=== PATIENT | female | born 1945 | race Caucasian/White ===

== ENCOUNTER 2021-05-17 18:05 | Observation (INO) | payer MEDICARE, SELFPAY ==
[2021-05-17] VITALS (11 sets, daily range): BP systolic 142–168; BP diastolic 67–81; PULSE 54–78; RESP 13–24; TEMP 36.4–36.8; O2SAT 97–100; BMI 27.3
--- NOTE | 2021-05-17 18:12 | DI.RAD.S_ITS ---
PROCEDURE: XR CHEST 1V INDICATIONS: chest pain TECHNIQUE: One view of the chest was acquired. COMPARISON: None. FINDINGS: Surgical changes and devices: None. Lungs and pleura: Lungs are clear. No pleural effusions or pneumothorax. Mediastinum: Mediastinal contours appear normal. Heart size is normal. Bones and chest wall: No suspicious bony lesions. Overlying soft tissues appear unremarkable. IMPRESSION: No acute cardiopulmonary disease. Dictated by: Jose Subramanian M.D. on 05/17/2021 at 18:34 Approved by: Jose Subramanian M.D. on 05/17/2021 at 18:35
--- NOTE | 2021-05-17 18:21 | PC.NURSE ---
First episode of chest pain, nausea/diaphoresis at 1330 while walking. Pt rested and pain went away. Second episode 1730, chest pain (not as intense as first episode), nausea/diaphoresis. Pt called EMS, given 324mg aspirin. Pain has since resolved. Pt reports history of similar episode years ago while hiking. Was told she needed a stent and she declined a stent at that time. Informed pt to use call light to notify staff if pain/sypmtoms return.
[2021-05-17 18:29] LABS: Add Manual Diff / Slide Review NO; Basophils Absolute Auto 100 /uL (0-100); Basophils Percent Auto 0.8 % (0-2); Eosinophils Absolute Auto 0 /uL (0-450); Eosinophils Percent Auto 0.5 % (2-4); Hematocrit 42.2 % (36-46); Hemoglobin 14.1 g/dL (12.0-16.0); Lymphocytes Absolute Auto 2200 /uL (1100-4500); Lymphocytes Percent Auto 24.4 % (25-40); Mean Corpuscular HGB Conc 33.5 % (30-36); Mean Corpuscular Hemoglobin 31.3 PG (26-34); Mean Corpuscular Volume 93.4 fL (80-100); Monocytes Absolute Auto 700 /uL (0-900); Monocytes Percent Auto 7.8 % (3-14); Neutrophils Absolute Auto 6000 /uL (1500-7000); Neutrophils Percent Auto 66.5 % (50-75); Platelet Count 207 X10^3/uL (150-400); Red Blood Cell Count 4.52 X10^6/uL (4.0-5.2); Red Cell Distribution Width 13.5 % (11.6-14.8); White Blood Cell Count 9.1 X10^3/uL (4.5-11.0)
--- NOTE | 2021-05-17 18:29 | ED_ITS ---
HPI - Chest Pain General Chief Complaint: Chest Pain Stated Complaint: Chest Pain Time Seen by Provider: 05/17/21 18:19 Source: patient and EMS Mode of arrival: EMS History of Present Illness HPI narrative: Patient is a 75-year-old female with history of hypothyroidism who is here for evaluation of 2 separate episodes of chest discomfort today. States that at about noon today she had chest discomfort that she points in the center of her chest in her epigastric region. Difficult for her to describe it she states that it was very intense. Did not seem to get worse with palpation or movement. No shortness of breath with that. I did resolve on its own after approximately 30 minutes. She then spent a period of time without any dis comfort but then became again this evening. This time it was more up into her chest. Again did not get any worse with palpation or movement she had no shortness of breath at the time. It did resolve on its own and less than 30 minutes. She called EMS and was brought to the emergency department for further evaluation. She did receive an aspirin prior to arrival. She was symptom-free at the time my evaluation. Related Data Home Medications Medication Instructions Recorded Confirmed levothyroxine 25 mcg tablet 25 mcg PO DAILY 05/17/21 05/17/21 Allergies Allergy/AdvReac Type Severity Reaction Status Date / Time No Known Drug Allergies Allergy Verified 05/17/21 18:12 Review of Systems Constitutional Constitutional: Denies fever(s) Cardiovascular Comments: Endorses chest pain Respiratory Comments: No shortness of breath Gastrointestinal Comments: No nausea vomiting Musculoskeletal Comments: No back pain Integumentary/Breasts Skin/Breast: Reports system reviewed and no additional complaints, except as documented Neurologic Neurologic: Reports system reviewed and no additional complaints, except as documented Psychiatric Psychiatric: Reports system reviewed and no additional complaints, except as documented Hematologic/Lymphatic On Anticoagulants: No Allergic/Immunologic Allergic/Immunologic: Reports system reviewed and no additional complaints, except as documented Patient History Medical History Hypothyroid Social History Smoking Status: Never smoker Smoking Status: Never smoker alcohol intake frequency: 0-2 drinks per day Substance Use Type: marijuana Exam Initial Vital Signs Initial Vital Signs: Vital Signs Temperature 98.2 F 05/17/21 18:08 Pulse Rate 76 05/17/21 18:08 Respiratory Rate 14 05/17/21 18:08 Blood Pressure 168/78 H 05/17/21 18:08 Pulse Oximetry 97 05/17/21 18:08 Const General: cooperative and healthy appearing [facility] Head: normal to inspection and normocephalic Resp Effort & Inspection: normal respiratory effort Auscultation: clear to auscultation bilaterally Cardio Rate: regular rate Rhythm: regular rhythm GI Inspection: normal to inspection Palpation: soft Skin General: no rashes or lesions noted Neuro General: patient alert, patient awake and patient oriented x3 Extrem General: normal to inspection and no pedal edema Psych Appearance: grossly normal and well kempt Scores GCS Pattie coma scale eye opening: Spontaneous [place] coma scale verbal response: Orientated Pattie coma scale motor response: Obey commands Pattie coma scale total score: 15 HEART Score Heart Score history: Moderately Suspicious Heart Score EKG: Non-Specific repolarization disturbance Heart Score Age: > or = 65 years old Heart Score risk factors: No known risk factors Heart Score troponin: < or = to normal limit Heart Score Total: 4 Course Orders Ordered: ED Orders 05/17/21 18:12 XR chest 1V Stat EKG-12 Lead Stat 05/17/21 18:19 Complete Blood Count AUTO DIFF Stat Comprehensive Metabolic Panel Stat Lipase Stat Magnesium Stat TSH w/ Reflex to FT4 Stat Troponin & CK Cardiac Panel Stat Acetaminophen (Acetaminophen 325 Mg Tablet) 650 mg PO Q6HR PRN PRN Reason: Fever/Mild Pain (1-3) Al Hydrox/Mg Hydrox/Simethicone (Mag Hydrox/Alum/Simeth 30 Ml Udc) 30 ml PO Q6HR PRN PRN Reason: Dyspepsia Aspirin (Aspirin Ec 81 Mg Tablet) 81 mg PO DAILY [facility] Enoxaparin Sodium (Enoxaparin 40 Mg/0.4 Ml Syringe) 40 mg SUBCUT DAILY [facility] Morphine Sulfate (Morphine 2 Mg/Ml Inj) 2 mg IV Q5MIN PRN PRN Reason: Chest Pain Naloxone HCl (Naloxone 0.4 Mg/Ml Vial) 0.2 mg IV Q2MIN PRN PRN Reason: Opiate Reversal Nitroglycerin (Nitroglycerin 0.4 Mg Sl Tab) 0.4 mg SL [id number] PRN PRN Reason: Chest Pain Ondansetron HCl (Ondansetron 4 Mg/2 Ml Inj) 4 mg IV Q8HR PRN PRN Reason: Nausea And Vomiting Pantoprazole Sodium (Pantoprazole Dr 20 Mg Tablet) 20 mg PO 0600 [facility] Sennosides (Sennosides 8.6 Mg Tablet) 17.2 mg PO BEDTIME BRIGIDA Last Admin: 05/17/21 22:29 Dose: 17.2 mg Documented by: YAMILETH Tramadol HCl (Tramadol 50 Mg Tablet) 100 mg PO QID PRN PRN Reason: Pain, Moderate (4-6) Vital Signs Vital signs: Vital Signs - 8 hr 05/17/21 18:08 05/17/21 18:11 05/17/21 18:15 Temperature 98.2 F Pulse Rate 76 78 73 Respiratory Rate 14 22 22 Blood Pressure 168/78 H 168/78 H Pulse Oximetry 97 100 100 05/17/21 18:30 05/17/21 19:00 05/17/21 19:30 Temperature Pulse Rate 61 60 57 L Respiratory Rate 13 13 13 Blood Pressure 165/79 H 158/79 H 161/72 H Pulse Oximetry 99 99 99 05/17/21 20:00 Temperature Pulse Rate 57 L Respiratory Rate 24 Blood Pressure 142/75 H Pulse Oximetry 99 MDM - Chest Pain Medical Records Data Attestation: I reviewed the patient's medical records. Lab Data Attestation: I reviewed the patient's lab results. Result diagrams: 05/17/21 18:19 05/17/21 18:19 Labs: Lab Results 05/17/21 05/17/21 05/17/21 Range/Units 18:19 18:19 18:19 WBC 9.1 (4.5-11.0) X10^3/uL RBC 4.52 (4.0-5.2) X10^6/uL Hgb 14.1 (12.0-16.0) g/dL Hct 42.2 (36-46) % MCV 93.4 (80-100) fL MCH 31.3 (26-34) PG MCHC 33.5 (30-36) % RDW 13.5 (11.6-14.8) % Plt Count 207 (150-400) X10^3/uL Neut % (Auto) 66.5 (50-75) % Lymph % (Auto) 24.4 L (25-40) % Sequoyah % (Auto) 7.8 (3-14) % Eos % (Auto) 0.5 L (2-4) % Baso % (Auto) 0.8 (0-2) % Neut # (Auto) 6000 (5839-8439) /uL Lymph # (Auto) 2200 (9334-9803) /uL Sequoyah # (Auto) 700 (0-900) /uL Eos # (Auto) 0 (0-450) /uL Baso # (Auto) 100 (0-100) /uL Sodium 137 (137-145) mmol/L Potassium 3.6 (3.4-5.1) mmol/L Chloride 104 (98-107) mmol/L Carbon Dioxide 25 (22-32) mmol/L BUN 13 (7-17) mg/dL Creatinine 0.58 (0.52-1.04) mg/dL Estimated GFR > 60.0 (>60) mL/min BUN/Creatinine Ratio 22.4 H (6-22) Glucose 105 (80-110) mg/dL Calcium 9.3 (8.4-10.2) mg/dL Magnesium 1.9 (1.6-2.3) mg/dL Total Bilirubin 0.7 (0.2-1.3) mg/dL AST 36 (14-36) IU/L ALT 21 (<35) IU/L Alkaline Phosphatase 110 (38-126) U/L Total Creatine Kinase 53 (30-135) U/L CK-MB (CK-2) TNP CK-MB (CK-2) Rel Index TNP Troponin I < 0.012 (0.01-0.034) ng/mL Total Protein 7.3 (6.3-8.2) g/dL Albumin 4.4 (3.5-5.0) g/dL Globulin 2.9 (1.7-4.1) g/dL Albumin/Globulin Ratio 1.5 (1.0-2.8) Triglycerides (35-150) mg/dL Cholesterol (140-199) mg/dL LDL Cholesterol, Calc (<100) mg/dL HDL Cholesterol (40-60) mg/dL Amylase (30-110) U/L Lipase 353 H (23-300) U/L TSH 1.23 (0.47-4.68) uIU/mL SARS-CoV-2 (PCR) (Negative) 0605/17/21 05/17/21 Range/Units 18:19 18:19 20:05 WBC (4.5-11.0) X10^3/uL RBC (4.0-5.2) X10^6/uL Hgb (12.0-16.0) g/dL Hct (36-46) % MCV (80-100) fL MCH (26-34) PG MCHC (30-36) % RDW (11.6-14.8) % Plt Count (150-400) X10^3/uL Neut % (Auto) (50-75) % Lymph % (Auto) (25-40) % Sequoyah % (Auto) (3-14) % Eos % (Auto) (2-4) % Baso % (Auto) (0-2) % Neut # (Auto) (3740-1378) /uL Lymph # (Auto) (0921-5039) /uL Sequoyah # (Auto) (0-900) /uL Eos # (Auto) (0-450) /uL Baso # (Auto) (0-100) /uL Sodium (137-145) mmol/L Potassium (3.4-5.1) mmol/L Chloride (98-107) mmol/L Carbon Dioxide (22-32) mmol/L BUN (7-17) mg/dL Creatinine (0.52-1.04) mg/dL Estimated GFR (>60) mL/min BUN/Creatinine Ratio (6-22) Glucose (80-110) mg/dL Calcium (8.4-10.2) mg/dL Magnesium (1.6-2.3) mg/dL Total Bilirubin (0.2-1.3) mg/dL AST (14-36) IU/L ALT (<35) IU/L Alkaline Phosphatase (38-126) U/L Total Creatine Kinase (30-135) U/L CK-MB (CK-2) CK-MB (CK-2) Rel Index Troponin I (0.01-0.034) ng/mL Total Protein (6.3-8.2) g/dL Albumin (3.5-5.0) g/dL Globulin (1.7-4.1) g/dL Albumin/Globulin Ratio (1.0-2.8) Triglycerides 103 (35-150) mg/dL Cholesterol 221 H (140-199) mg/dL LDL Cholesterol, Calc 125 H (<100) mg/dL HDL Cholesterol 75 H (40-60) mg/dL Amylase 123 H (30-110) U/L Lipase (23-300) U/L TSH (0.47-4.68) uIU/mL SARS-CoV-2 (PCR) Negative (Negative) Imaging Data Chest x-ray: Attestation: I personally reviewed and interpreted this imaging study as follows: Radiologist's Impression: [address] [id number] ReportSigned Patient: Deanne Hernandez#: [id number]: 5Acct:[id number]/Sex: 75 / FDate of Service: 05/17/21Loc: EDAccession Number: [id number] Procedure: XR chest 1V Ordering Provider: Emmy Hoang D.O. PROCEDURE: XR CHEST 1V INDICATIONS: chest pain TECHNIQUE: One view of the chest was acquired. COMPARISON: None. FINDINGS: Surgical changes and devices: None. Lungs and pleura: Lungs are clear. No pleural effusions or pneumothorax. Mediastinum: Mediastinal contours appear normal. Heart size is normal. Bones and chest wall: No suspicious bony lesions. Overlying soft tissues appear unremarkable. IMPRESSION: No acute cardiopulmonary disease. Dictated by: Jose Subramanian M.D. on 05/17/2021 at 18:34 Approved by: Jose Subramanian M.D. on 05/17/2021 at 18:35 ECG Data Attestation: I personally reviewed and interpreted this ECG as follows: Interpretation: Sinus rhythm Ventricular rate is 77 Normal axis Normal QRS Normal QTC Nonspecific ST T wave changes MDM Narrative Medical decision making narrative: Heart score is 4. Has nonspecific changes on the EKG. Chest x-ray is unremarkable. Has been symptom-free since arrival here to the emergency department. She did receive an aspirin prior to arrival. Given her heart score in her presentation I do feel she needs admitted for further risk stratification. I did discuss this with the patient she expressed understanding and agreement. I then discussed the case with NAEEM Min the [facility] provider who will admit for further evaluation. Discharge Plan Departure Patient Disposition: Admitted as Observation Clinical Impression: Chest pain Admit Date/Time: 05/17/21 20:07 Admit Provider: Lupis Min
[2021-05-17 18:36] LABS: Alanine Aminotransferase 21 IU/L (<35); Albumin 4.4 g/dL (3.5-5.0); Albumin Globulin Ratio 1.5 (1.0-2.8); Alkaline Phosphatase 110 U/L (38-126); Aspartate Aminotransferase 36 IU/L (14-36); BUN Creatinine Ratio 22.4 (6-22); Bilirubin Total 0.7 mg/dL (0.2-1.3); Blood Urea Nitrogen 13 mg/dL (7-17); Calcium 9.3 mg/dL (8.4-10.2); Carbon Dioxide 25 mmol/L (22-32); Chloride 104 mmol/L (98-107); Creatine Kinase 53 U/L (30-135); Estimated Glomerular Filt Rate > 60.0 mL/min (>60); Globulin 2.9 g/dL (1.7-4.1); Glucose 105 mg/dL (80-110); HEMOLYSIS < 15 (0-50); Lipase 353 U/L (23-300); Magnesium 1.9 mg/dL (1.6-2.3); Potassium 3.6 mmol/L (3.4-5.1); Sodium 137 mmol/L (137-145); Total Protein 7.3 g/dL (6.3-8.2)
[2021-05-17 18:48] LABS: Troponin I < 0.012 ng/mL (0.01-0.034)
[2021-05-17 19:07] LABS: TSH w/ Reflex to FT4 1.23 uIU/mL (0.47-4.68)
--- NOTE | 2021-05-17 20:26 | DI.ECHO.S_ITS ---
[facility]---------+ [facility] +---------+ : : [address] [place] : : : : [id number] : : : : Phone: [phone] Echocardiogram Report + + :Name: AMBIKA BOOKER Study Date: 05/18/2021 Height: 61 in : :[facility] ReadingLocation: Weight: 145 lb : : Gender: Female BSA: 1.6 m2 : :: 1945 Age: 75 yrs BP: 144/67 mmHg: :Reason For Study: CHEST PAIN : :Ordering Physician: AN, : :FATOUMATA Performed By: Radha Wyatt : :Referring: FATOUMATA NOLAN : + + Interpretation Summary The patient was in sinus rhythm with heart rates between 53-73 bpm during the exam. Short run of narrow QRS tachycardia with a heart rate of 119 bpm seen. Differential diagnosis sinus tachycardia versus atrial tachycardia. Image 26. The left ventricle is normal in size and wall thickness. The ejection fraction is estimated to be 60-65%. The right ventricle is normal in size and function. No significant valvular pathology seen. The IVC is of normal diameter and collapses greater than 50% with a sniff. This suggests a low right atrial pressure of 3 mm Hg. Mild atherosclerotic plaque(s) in the aortic arch. There is mild luminal irregularity and echogenicity in the abdominal aorta, suggestive of aortic atherosclerotic disease. Procedure: A two-dimensional transthoracic echocardiogram with color flow and Doppler was performed. The study quality was technically adequate. There is no prior echocardiogram noted for this patient. The patient was in sinus rhythm with heart rates between 53-73 bpm during the exam. Short run of narrow QRS tachycardia with a heart rate of 119 bpm seen. Differential diagnosis sinus tachycardia versus atrial tachycardia. Image 26. Left Ventricle: The left ventricle is normal in size and wall thickness. There is no thrombus. The ejection fraction is estimated to be 60-65%. There are no focal wall motion abnormalities. Diastolic parameters suggest probable normal left ventricular diastolic function and normal filling pressures. Right Ventricle: The right ventricle is normal in size and function. Atria: The left atrium is mildly dilated. Right atrial size is normal. There is no Doppler evidence for an interatrial shunt. Mitral Valve: There is mild mitral annular calcification. The mitral valve chordae are thickened and/or calcified. There is trace mitral regurgitation. Aortic Valve: The aortic valve is trileaflet. The aortic valve opens well. The aortic valve is slightly calcified. There is no aortic valve stenosis. There is trace aortic regurgitation. Tricuspid Valve: The tricuspid valve is normal. There is trace tricuspid regurgitation. Pulmonary artery pressures cannot be estimated because of the lack of a measurable TR jet velocity but the IVC suggests a CVP of around 3 mmHg. Pulmonic Valve: The pulmonic valve leaflets are thin and pliable; valve motion is normal. There is trace pulmonic regurgitation. Great Vessels: The aortic root is normal size. The dimensions of the ascending aorta are normal. Mild atherosclerotic plaque(s) in the aortic arch. There is mild luminal irregularity and echogenicity in the abdominal aorta, suggestive of aortic atherosclerotic disease. The IVC is of normal diameter and collapses greater than 50% with a sniff. This suggests a low right atrial pressure of 3 mm Hg. Pericardium/ Pleura There is no pericardial effusion. There is no pleural effusion. MMode/2D Measurements & Calculations LVIDd: 5.0 cm LVOT diam: 2.0 cm LVIDs: 3.3 cm Ao root diam: 2.9 cm FS: 34.4 % asc Aorta Diam: 3.2 cm IVSd: 0.73 cm Ao Arch Diam (Prox Trans): 2.7 cm LVPWd: 0.75 cm LV moya. diameter/BSA (cm/m^2): 3.1 LV sys. diameter/BSA (cm/m^2): 2.0 LA A2 area: 20.6 cm2 RA long axis: 4.9 cm LA A4 area: 18.6 cm2 RA area: 15.1 cm2 LA length (vol): 5.4 cm RA vol: 39.9 ml LA vol: 60.7 ml RA : 24.2 ml/m2 LA vol index: 36.8 ml/m2 IVC diam: 1.9 cm RVD1 (basal): 3.2 cm TAPSE: 1.8 cm Doppler Measurements & Calculations Ao V2 max: 114.5 cm/sec LVOT Max Sterling: 95.7 cm/sec Ao V2 mean: 77.9 cm/sec LV V1 max P.7 mmHg Ao max P.2 mmHg LV V1 VTI: 21.2 cm Ao mean P.7 mmHg SIVAKUMAR(I,D): 2.4 cm2 Ao V2 VTI: 26.7 cm SIVAKUMAR(V,D): 2.5 cm2 sev ratio: 0.79 SIVAKUMAR indexed to BSA (cm^2/m^2): 1.5 MV E max sterling: 72.4 cm/sec PA V2 max: 89.1 cm/sec MV A max sterling: 48.7 cm/sec PA V2 mean: 56.8 cm/sec MV E/A: 1.5 PA mean P.5 mmHg Med Peak E' Sterling: 6.4 cm/sec PA pr(Accel): 27.6 mmHg E/E' med: 11.4 Lat Peak E' Sterling: 8.3 cm/sec E/E' lat: 8.7 E/e' average: 10.0 MV dec time: 0.17 sec SV(LVOT): 64.2 ml Reading Physician:12:25 PM
--- NOTE | 2021-05-17 20:36 | P.HP_ITS ---
History of Present Illness History of Present Illness Date Patient Seen: 05/17/21 Time Patient Seen: 20:35 Chief complaint: Chest Pain Narrative: Patient is a 75-year-old female Allegra Moctezuma who presented to the ED for evaluation of 2 separate episodes of chest discomfort today. States that at about noon today she had chest discomfort that she points in the center of her chest in her epigastric region. Difficult for her to describe it she states that it was very intense searing constant pain without radiation. Did not seem to get worse with palpation or movement. Patient chest prior had walked up and down stairs but was at rest when the pain occurred. Patient reports that she experience diaphoresis and nausea. No shortness of breath with that. It did resolve on its own after approximately 30 minutes. The patient then spent a period of time without any discomfort until a 2nd episode occurred this evening. This time it was more up into her chest. Again did not get any worse with palpation or movement she had no shortness of breath at the time, no diaphoresis or nausea but felt shaky. It did resolve on its own and less than 30 minutes. Patient was symptom free by the time she was seen in the ED. Upon admit patient is resting comfortably in the bed and denies any symptoms at this time. Patient denies any recent a illness, injury, trauma, changes in medication, weakness, numbness or tingling, changes in vision, headache, difficulty with ambulation balance or coordination, recent diarrhea or vomiting. Patient reports that several years ago she had a similar episode of chest pain several weeks later was seen by a field gauger who did a cardiac workup and recommended the patient have a catheterization with stent placement patient at that time refused. Patient prefers alternative medicine therapies. Patient does report having acid reflux symptoms burning after eating and a sense of fullness, and bloating. And she reports the pain to be recurring in the epigastric region. The patient did not describe to may any chest pain in the chest area. Patient has a history of hypothyroidism, past heart attack, type 2 diabetes managed by diet exercise, and and arrange wrists. Patient is admitted for chest pain rule out. Patient's vitals upon admit are stable with mildly elevated respiratory rate of 24. Patient's CBC within normal limits, CMP within normal limits, troponin< 0.012, lipase mildly elevated at 353, and TSH within normal limits 1.23. Patient's chest x-ray Patient History Medical History (Updated 05/18/21 @ 04:17 [facility] History of endometriosis History of heart attack History of type 2 diabetes mellitus Hypothyroid Surgical History (Updated 05/18/21 @ 04:17 by CHECO Maynard) History of tonsillectomy Family & Social History Family History (Updated 05/18/21 @ 04:19 by CHECO Maynard) Mother Cancer Sister Diabetes mellitus Social History: Patient lives alone, she is a retired nurse and current food handler, daughter and son-in-law (Dr. Michel Ordoñez) live approximately 1 mi away. Safety & Behavioral: Feels Safe in Current Yes Environment Been Physically Hurt or No Threatened By a Person Tobacco & Substance use: Smoking Status Never smoker alcohol intake frequency 0-2 drinks per day Substance Use Type marijuana at night for sleep Meds Home Medications and Allergies Home Medications Medication Instructions Recorded Confirmed Type levothyroxine 25 mcg tablet 25 mcg PO DAILY 05/17/21 05/17/21 History Allergies Allergy/AdvReac Type Severity Reaction Status Date / Time No Known Drug Allergies Allergy Verified 05/17/21 18:12 Review of Systems Review of Systems Narrative: Patient denies any signs or symptoms at this other than what is documented in the HPI. Exam Vital Signs (past 8 hours): - 05/17/21 18:08 05/17/21 18:11 05/17/21 18:15 Temperature 98.2 F Pulse Rate 76 78 73 Respiratory Rate 14 22 22 Blood Pressure 168/78 H 168/78 H Pulse Oximetry 97 100 100 05/17/21 18:30 05/17/21 19:00 05/17/21 19:30 Temperature Pulse Rate 61 60 57 L Respiratory Rate 13 13 13 Blood Pressure 165/79 H 158/79 H 161/72 H Pulse Oximetry 99 99 99 05/17/21 20:00 Temperature Pulse Rate 57 L Respiratory Rate 24 Blood Pressure 142/75 H Pulse Oximetry 99 Oxygen Delivery Method Room Air Narrative Exam Narrative: General: Patient is a well-developed, well-nourished in no distress at this time. HEENT: Normocephalic, atraumatic, extraocular muscles intact, oral pharynx is clear and mucous membranes are moist. Neck is supple and symmetric, trachea is midline, no adenopathy, no thyroid enlargement, nontender, no masses palpated. Negative for JVD Chest: Normal AP diameter and contour without kyphoscoliosis, no nasal flaring, retractions, or tachypneic labored Lungs: Auscultation of all lung gonsales are clear without adventitious sounds, wheezes, rhonchi, or rales. Cardio: S1 & S2 with regular rate and rhythm without murmur, rubs, or gallops, no carotid bruit, no cardiac pulsations present. Abdomen: Soft nontender, negative for organomegaly, or masses. Bowel sounds are present in all 4 quadrants without guarding or rebound, no CVA tenderness. Musculoskeletal: Muscle strength and tone are equal within normal limits, no deformity, crepitus, effusions, cyanosis, clubbing or edema present. Full range of motion intact radial and pedal pulses are normal. Skin: Warm dry and intact without rashes, ulcerations or petechiae. Neuro: Alert and orientated x3, strength is +5/5 in all extremities, sensation to touch intact, no gross deficits noted of cranial nerves. Psych: Patient has a well-kept appearance, appropriate affect, mental status attitude thought context and judgment are appropriate for age. Objective Labs Result Diagrams: 05/17/21 18:19 05/17/21 18:19 Labs: Laboratory Results - last 24 hr 05/17/21 05/17/21 05/17/21 18:19 18:19 18:19 WBC 9.1 RBC 4.52 Hgb 14.1 Hct 42.2 MCV 93.4 MCH 31.3 MCHC 33.5 RDW 13.5 Plt Count 207 Neut % (Auto) 66.5 Lymph % (Auto) 24.4 L [place] % (Auto) 7.8 Eos % (Auto) 0.5 L Baso % (Auto) 0.8 Neut # (Auto) 6000 Lymph # (Auto) 2200 [place] # (Auto) 700 Eos # (Auto) 0 Baso # (Auto) 100 Sodium 137 Potassium 3.6 Chloride 104 Carbon Dioxide 25 BUN 13 Creatinine 0.58 Estimated GFR > 60.0 BUN/Creatinine Ratio 22.4 H Glucose 105 Calcium 9.3 Magnesium 1.9 Total Bilirubin 0.7 AST 36 ALT 21 Alkaline Phosphatase 110 Total Creatine Kinase 53 CK-MB (CK-2) TNP CK-MB (CK-2) Rel Index TNP Troponin I < 0.012 Total Protein 7.3 Albumin 4.4 Globulin 2.9 Albumin/Globulin Ratio 1.5 Lipase 353 H TSH 1.23 Assessment & Plan Assessment & Plan narrative: 1. Acute chest pain, acute, present on admission- currently resolved in the setting of previous heart attack -Rule out myocardial ischemia, ACS, CAD, aortic dissection -while patient's has tree is suggestive of a cardiac event I also suspect unmanaged acid reflux due to patient describing the chest pain is epigastric and symptoms of acid reflux and possible acute pancreatitis referring pain, as evidenced by elevated lipase. Heart score: 4, GCS score:15 -Continuous tele monitoring and order echo, and stress test for tomorrow -Serial troponins 1 Q 6 hours x3, proBNP, TSH, -Monitor for hypertensive emergencies with acute end-organ damage, ventricular tachycardia, unstable SVT, hypertension, angina or TN, heart failure, renal func tion. - Goals: reducing blood pressure over 24-48 hours, not more than 25-30% in the 1st 24 hours. O2 to keep O2 sats greater than 92% potassium > 4 and Mag > 2 2. Elevated lipase, acute, present on admission -as evidence by a lipase of 353, ordered amylase if amylase is elevated will order abdominal ultrasound to evaluate for pancreatitis. -monitor for abdominal pain, order lipid panel 3. Hypothyroidism, acquired, chronic, present on admission -continue patient's levothyroxine, monitor TSH 4. Overweight as evidence by BMI 27.4, acute on chronic, present on admission -consideration will be given to dietary counseling Code status: Full code Surrogate decision maker: Daughter Daniela and son-in-law Michel Senior ([facility]) COVID PCR: Negative DVT/VTE prophylaxis: Lovenox 40 mg and SCDs Scores GCS [place] coma scale eye opening: Spontaneous [place] coma scale verbal response: Orientated Pattie coma scale motor response: Obey commands [place] coma scale total score: 15 Quality MIPS - Admit I confirm the patient?s Advance Care Plan is present, Code status is documented, Surrogate decision maker is in patient?s record [If Yes, STOP here]: Yes
[2021-05-17 20:56] LABS: Amylase 123 U/L (30-110)
[2021-05-17 21:46] LABS: COVID19 - ADMIT (NP swab/PCR) Negative (Negative)
[2021-05-17 21:49] LABS: Troponin I < 0.012 ng/mL (0.01-0.034)
[2021-05-17 21:54] LABS: Cholesterol 221 mg/dL (140-199); HDL Cholesterol 75 mg/dL (40-60); LDL Cholesterol Calculated 125 mg/dL (<100); Triglycerides 103 mg/dL (35-150)
[2021-05-17] MEDS: SENNOSIDES 8.6 MG TABLET 17.2 MG PO (22:29)
[2021-05-18] VITALS (8 sets, daily range): BP systolic 109–143; BP diastolic 66–87; PULSE 52–63; RESP 16–18; TEMP 36.1–37.2; O2SAT 97–99
[2021-05-18] MEDS: diphenhydrAMINE 25 MG TABLET 50 MG PO (00:59)
--- NOTE | 2021-05-18 04:34 | DI.US.S_ITS ---
PROCEDURE: US ABDOMEN LIMITED INDICATIONS: CHEST/EPIGASTRIC PAIN TECHNIQUE: Real-time focused scanning was performed of the abdomen, with image documentation. COMPARISON: None. FINDINGS: Liver is normal in size and echotexture. The main portal vein is patent measuring 1.4 in diameter. There is a 2.4 x 1.4 x 2.3 cm hyperechoic nodule in the right hepatic lobe. A 1 cm hyperechoic nodule is seen just posterior to the larger nodule. There is a 1.3 x 1.6 x 1.8 cm hyperechoic nodule in the left hepatic lobe. These nodules are most likely hepatic hemangiomas. No gallstones. No gallbladder wall thickening, pericholecystic fluid or sonographic Valdez's sign. Common bile duct is normal in caliber measuring 3.4 mm. IMPRESSION: 1. No ultrasound findings to explain epigastric pain. 2. Normal gallbladder. 3. 3 hyperechoic hepatic lesions. In a patient without known liver disease, these are most likely hepatic hemangiomas. If the patient does have liver disease, further evaluation with CT or MRI using liver protocol is recommended. Dictated by: Jose Subramanian M.D. on 05/18/2021 at 11:44 Approved by: Jose Subramanian M.D. on 05/18/2021 at 11:47
[2021-05-18 05:36] LABS: INR 1.1 (0.9-1.3); Prothrombin Time 12.4 SECONDS (10.1-12.7)
[2021-05-18 05:51] LABS: NT-proBNP (BNP-Adult 18+) 471 pg/mL (<450)
[2021-05-18 05:54] LABS: Troponin I < 0.012 ng/mL (0.01-0.034)
[2021-05-18] MEDS: PANTOPRAZOLE DR 20 MG TABLET PO (06:06)
[2021-05-18] MEDS: ASPIRIN EC 81 MG TABLET PO (08:52)
[2021-05-18] MEDS: ENOXAPARIN 40 MG/0.4 ML SYRINGE SUBCUT (08:52)
--- NOTE | 2021-05-18 11:56 | CM.DANOTE ---
DCP/Assessment: Reviewed chart. Patient is a 75yr old female admitted to [facility] with [facility] pain. PCP listed is Erin Rodriguez. Primary payor is Medicare. Met with patient this AM explained CM/SW role. Patient resting comfortably in bed at time of visit. Patient alert and oriented. Patient reports that she plans to d/c home when medically stable. Patient indicates that she is completely I in all ADL's. Patient scheduled for stress test today, if negative may discharge home today. P: Home when medically stable. EJ Mabry Discharge Planning/Care Management CM Discharge Assessment Start: 05/18/21 11:53 Freq: Status: Active Protocol: Document 05/18/21 11:53 KJS (Rec: 05/18/21 11:56 KJS [id number]) Discharge Planning Assessment Assigned Senior Enterprise Architect EJ Mabry Contact Information Irma Moctezuma Advance Directives? No History Provided By Patient,Medical Record Prior Living Arrangements House Household Members none Type of transporation used prior to Drives own vehicle admit Independent with ADL's Yes Is patient alert and oriented? Yes Caregiver for Another No Barriers to Discharge No Discharge Plan Home Transportation Arrangement Family to assist with transport. Patient [address] on [facility]. Referrals Initiated None needed Whiteboard Updated in Patient Room with Yes name and ext. # of Senior Enterprise Architect Review Status In Process Next Review Type Continued Stay Review
--- NOTE | 2021-05-18 13:32 | PM.TREADMILL ---
Cardiac Stress Test Report Referral & Results Date Patient Seen: 05/18/21 Time Patient Seen: 13:33 Requesting provider: Lupis Min Indication: chest pain Rest ECG: Sinus rhythm Procedure Note: Standard Warren protocol, 6:00, 6.1 METS Good exercise capacity, ZHENG -13% Normal hemodynamic response to exercise No chest pain or anginal symptoms No significant ST changes at peak exercise No ectopy Impression: Normal exercise stress test Please note: Actual ECG tracings can be found in the PACS system.
--- NOTE | 2021-05-18 18:08 | DI.NM.S_ITS ---
DATE OF SERVICE: PROCEDURE: Exercise perfusion study. DATE OF STUDY: May 18, 2021 INDICATIONS: Chest pain with underlying diabetes mellitus, hyperlipidemia. RADIOPHARMACEUTICAL: 24.7 millicurie technetium-99m Myoview IV was injected at stress and 11.7 millicurie technetium-99m Myoview IV was injected at rest. CARDIAC STRESS: The patient underwent exercise perfusion study under the supervision of an attending staff. She walked on Warren protocol for 6 minutes and achieved 105 percent of target heart rate and normal blood pressure response, ZHENG -13% and 7 METs of workload. Baseline blood pressure 122/70 mmHg. Maximum blood pressure 162/86. Maximum heart rate 152 beats per minute. No chest pain. The patient felt fatigue. Baseline EKG revealed sinus rhythm. During stress, no convincing ischemic changes or arrhythmias seen. RAW DATA: There was significant breast shadow seen. GATED STUDY: Stress LV ejection fraction 78 percent without any obvious wall motion abnormalities. Resting end-diastolic volume 73 mL. TID ratio 1.03, which is within normal limits. Lung/heart ratio 0.27 which is within normal limits. MYOCARDIAL PERFUSION SCAN: Stress supine, resting supine and stress prone images were compared to each other. Stress supine and resting supine images revealed small size, mildly decreased perfusion of distal anterior wall and anterior apex which got completely resolved during prone images suggestive of breast tissue attenuation artifact. Stress prone images revealed normal myocardial perfusion. CONCLUSION: I will call this study a normal myocardial perfusion study with evidence of breast tissue attenuation artifact which got resolved during stress prone images. Fair exercise tolerance. Preserved left ventricular function. Normal hemodynamic response. No obvious ischemic changes or significant arrhythmias. Overall, this is a low-risk myocardial perfusion study. Allegra Moctezuma - ANU/ricarda/tonia doc#: [id number]/job#: [id number] dd: 05/18/2021 17:08:00 dt: 05/18/2021 17:59:00 DICTATING MD/COPIES TO: Yolanda Ware MD COPIES MNE: OBDULIA;
--- NOTE | 2021-05-18 18:15 | PM.DS.1 ---
History of Present Illness History of Present Illness Date Patient Seen: 05/18/21 Time Patient Seen: 18:15 Chief complaint: Chest Pain Narrative: As per CHECO Maynard: Patient is a 75-year-old female Allegra Moctezuma who presented to the ED for evaluation of 2 separate episodes of chest discomfort today. States that at about noon today she had chest discomfort that she points in the center of her chest in her epigastric region. Difficult for her to describe it she states that it was very intense searing constant pain without radiation. Did not seem to get worse with palpation or movement. Patient chest prior had walked up and down stairs but was at rest when the pain occurred. Patient reports that she experience diaphoresis and nausea. No shortness of breath with that. It did resolve on its own after approximately 30 minutes. The patient then spent a period of time without any discomfort until a 2nd episode occurred this evening. This time it was more up into her chest. Again did not get any worse with palpation or movement she had no shortness of breath at the time, no diaphoresis or nausea but felt shaky. It did resolve on its own and less than 30 minutes. Patient was symptom free by the time she was seen in the ED. Upon admit patient is resting comfortably in the bed and denies any symptoms at this time. Patient denies any recent a illness, injury, trauma, changes in medication, weakness, numbness or tingling, changes in vision, headache, difficulty with ambulation balance or coordination, recent diarrhea or vomiting. Patient reports that several years ago she had a similar episode of chest pain several weeks later was seen by a revenue manager who did a cardiac workup and recommended the patient have a catheterization with stent placement patient at that time refused. Patient prefers alternative medicine therapies. Patient does report having acid reflux symptoms burning after eating and a sense of fullness, and bloating. And she reports the pain to be recurring in the epigastric region. The patient did not describe to may any chest pain in the chest area. Patient has a history of hypothyroidism, past heart attack, type 2 diabetes managed by diet exercise, and and arrange wrists. Patient is admitted for chest pain rule out. Patient's vitals upon admit are stable with mildly elevated respiratory rate of 24. Patient's CBC within normal limits, CMP within normal limits, troponin< 0.012, lipase mildly elevated at 353, and TSH within normal limits 1.23. Patient's chest x-ray Discharge Providers Provider Date of admission: 05/17/21 20:07 Discharge Date: 05/18/21 Primary care physician: MICHELE Heller Discharge provider: Samuel Teague DO Summary Hospital Course Discharge Diagnosis: 1. Acute chest pain, acute, present on admission-currently resolved in the setting of previous heart attack 2. Elevated lipase, acute, present on admission 3. Hypothyroidism, acquired, chronic, present on admission 4. Overweight as evidence by BMI 27.4, acute on chronic, present on admission Hospital Course: This is a 75-year-old female with a past medical history of hypothyroidism who presented to the emergency room with chest pain. She had a previous positive stress test she reported many years ago but did not seek cardiac interventions at that time. Her heart score was 4 and she underwent cardiac stress testing. Serial troponins were negative. Echocardiogram was unremarkable and stress testing was deemed low risk. Her abdominal ultrasound did reveal some hepatic cysts, but there were no LFT abnormalities and her liver function appears normal. She should follow-up with her primary care provider regarding these liver cysts if her pain continues. There was no evidence of gallstones on her ultrasound. Her lipase was mildly elevated, but only mildly so. Another possibility for her pain could be pancreatitis, however this seems less likely at this time. Exam Vital Signs (past 8 hours): - 05/18/21 11:35 05/18/21 12:00 05/18/21 15:20 Temperature 97.0 F L 97.4 F L Pulse Rate 58 L 62 Respiratory Rate 16 16 Blood Pressure 129/72 109/74 Pulse Oximetry 99 99 99 Oxygen Delivery Method Room Air Oxygen Flow Rate 0 Narrative Exam Narrative: General: Patient is a well-developed, well-nourished in no distress at this time. HEENT: Normocephalic, atraumatic, extraocular muscles intact, oral pharynx is clear and mucous membranes are moist. Neck is supple and symmetric, trachea is midline, no adenopathy, no thyroid enlargement, nontender, no masses palpated. Negative for JVD Lungs: Auscultation of all lung gnosales are clear without adventitious sounds, wheezes, rhonchi, or rales. Cardio: S1 & S2 with regular rate and rhythm without murmur, rubs, or gallops, no carotid bruit, no cardiac pulsations present. Abdomen: Soft nontender, and nondistended Objective Labs Result Diagrams: 05/17/21 18:19 05/17/21 18:19 Labs: Laboratory Results - last 24 hr 05/17/21 05/17/21 05/17/21 18:19 18:19 18:19 WBC 9.1 RBC 4.52 Hgb 14.1 Hct 42.2 MCV 93.4 MCH 31.3 MCHC 33.5 RDW 13.5 Plt Count 207 Neut % (Auto) 66.5 Lymph % (Auto) 24.4 L [place] % (Auto) 7.8 Eos % (Auto) 0.5 L Baso % (Auto) 0.8 Neut # (Auto) 6000 Lymph # (Auto) 2200 [place] # (Auto) 700 Eos # (Auto) 0 Baso # (Auto) 100 PT INR Sodium 137 Potassium 3.6 Chloride 104 Carbon Dioxide 25 BUN 13 Creatinine 0.58 Estimated GFR > 60.0 BUN/Creatinine Ratio 22.4 H Glucose 105 Calcium 9.3 Magnesium 1.9 Total Bilirubin 0.7 AST 36 ALT 21 Alkaline Phosphatase 110 Total Creatine Kinase 53 CK-MB (CK-2) TNP CK-MB (CK-2) Rel Index TNP Troponin I < 0.012 NT-Pro-B Natriuret Pep Total Protein 7.3 Albumin 4.4 Globulin 2.9 Albumin/Globulin Ratio 1.5 Triglycerides Cholesterol LDL Cholesterol, Calc HDL Cholesterol Amylase Lipase 353 H TSH 1.23 SARS-CoV-2 (PCR) 05/17/21 05/17/21 05/17/21 18:19 18:19 20:05 WBC RBC Hgb Hct MCV MCH MCHC RDW Plt Count Neut % (Auto) Lymph % (Auto) [place] % (Auto) Eos % (Auto) Baso % (Auto) Neut # (Auto) Lymph # (Auto) [place] # (Auto) Eos # (Auto) Baso # (Auto) PT INR Sodium Potassium Chloride Carbon Dioxide BUN Creatinine Estimated GFR BUN/Creatinine Ratio Glucose Calcium Magnesium Total Bilirubin AST ALT Alkaline Phosphatase Total Creatine Kinase CK-MB (CK-2) CK-MB (CK-2) Rel Index Troponin I NT-Pro-B Natriuret Pep Total Protein Albumin Globulin Albumin/Globulin Ratio Triglycerides 103 Cholesterol 221 H LDL Cholesterol, Calc 125 H HDL Cholesterol 75 H Amylase 123 H Lipase TSH SARS-CoV-2 (PCR) Negative 05/17/21 05/18/21 05/18/21 21:22 05:17 05:17 WBC RBC Hgb Hct MCV MCH MCHC RDW Plt Count Neut % (Auto) Lymph % (Auto) [place] % (Auto) Eos % (Auto) Baso % (Auto) Neut # (Auto) Lymph # (Auto) [place] # (Auto) Eos # (Auto) Baso # (Auto) PT 12.4 INR 1.1 Sodium Potassium Chloride Carbon Dioxide BUN Creatinine Estimated GFR BUN/Creatinine Ratio Glucose Calcium Magnesium Total Bilirubin AST ALT Alkaline Phosphatase Total Creatine Kinase CK-MB (CK-2) CK-MB (CK-2) Rel Index Troponin I < 0.012 < 0.012 NT-Pro-B Natriuret Pep Total Protein Albumin Globulin Albumin/Globulin Ratio Triglycerides Cholesterol LDL Cholesterol, Calc HDL Cholesterol Amylase Lipase TSH SARS-CoV-2 (PCR) 05/18/21 05:17 WBC RBC Hgb Hct MCV MCH MCHC RDW Plt Count Neut % (Auto) Lymph % (Auto) [place] % (Auto) Eos % (Auto) Baso % (Auto) Neut # (Auto) Lymph # (Auto) [place] # (Auto) Eos # (Auto) Baso # (Auto) PT INR Sodium Potassium Chloride Carbon Dioxide BUN Creatinine Estimated GFR BUN/Creatinine Ratio Glucose Calcium Magnesium Total Bilirubin AST ALT Alkaline Phosphatase Total Creatine Kinase CK-MB (CK-2) CK-MB (CK-2) Rel Index Troponin I NT-Pro-B Natriuret Pep 471 H Total Protein Albumin Globulin Albumin/Globulin Ratio Triglycerides Cholesterol LDL Cholesterol, Calc HDL Cholesterol Amylase Lipase TSH SARS-CoV-2 (PCR) [facility] Medical History (Updated 05/18/21 @ 04:17 by RAMY Maynard-FREDY) History of endometriosis History of heart attack History of type 2 diabetes mellitus Hypothyroid Surgical History (Updated 05/18/21 @ 04:17 by CHECO Maynard) History of tonsillectomy Family History (Updated 05/18/21 @ 04:20 by CHECO Maynard) Mother Cancer Sister Diabetes mellitus Social History household members: none Smoking Status: Never smoker Discharge Plan Discharge Plan Patient Disposition: Home Provider Discharge Comment: You were admitted to the hospital with chest pain. Stress testing was performed which was deemed low risk for cardiac ischemia (normal). Ultrasound of your abdomen did not show any gallstones, you do have some liver cysts that appear benign but your liver function is normal. If your pain continues consider further evaluation with your primary care provider. No medication changes are necessary at this time. Discharge orders & Medications Prescriptions: Continued levothyroxine 25 mcg Tablet 25 mcg PO DAILY RF: 0 Follow up/Referrals: Erin Rodriguez ARNP [Primary Care Provider] - Diet/Activity/Treatments Diet: Diet as Tolerated Activity: As tolerated Visit Report/Discharge Packet Instructions: DI for Chest Pain Discharge Data Primary Care Provider: Erin Rodriguez Attending Provider: Lupis Min VTE Deep Vein Thrombosis/Pulmonary Embolism Present on Admission: No
--- NOTE | 2021-05-18 18:36 | PC.NURSE ---
Discharge note: Patient left under her own power to ED entrance to await pecan picker by ride. IV and telemetry removed, notified SUPERVISOR CHANNEL PROCESS that patient is discharging. All discharge instructions including when to return to ED, follow up with PCM, and stroke education provided. Patient acknowledged all teaching. Low fall risk at discharge.
== END 2021-05-18 18:40 | disposition home or self-care (01) ==
LOC: ED 20:02 → AC 20:08
PROVIDERS: Emergency Medicine; Admitting Provider Nurse Practitioner Family; Emergency Provider Emergency Medicine; PCP Nurse Practitioner Family; Visit Provider Nurse Practitioner Family
DX: R07.9 Chest pain, unspecified (principal); R74.8 Abnormal levels of other serum enzymes; E03.9 Hypothyroidism, unspecified; E66.3 Overweight; Z68.27 Body mass index [BMI] 27.0-27.9, adult
CPT/HCPCS: 36415; 71045; 76705; 78452; 80053; 80061; 82150; 82550; 83690; 83735; 83880; 84443; 84484; 85025; 85610; 87635; 93005; 93017; 93306; 96372; 99284; 99285; C9803; G0378; A9502; J1650

== ENCOUNTER → 2023-08-06 17:11 | Outpatient (CLI) | payer MEDICARE, SELFPAY ==
[2021-05-17 22:36] VITALS: BMI 27.3
--- NOTE | 2023-08-06 17:13 | DI.RAD.S_ITS ---
PROCEDURE: XR ANKLE RT MIN 3V INDICATIONS: right ankle pain TECHNIQUE: 3 views of the ankle were acquired. COMPARISON: None. FINDINGS: Bones: Minimally displaced oblique fracture seen at the distal fibular metaphysis. No definite distal tibial fracture is seen. The mortise joint alignment appears normal. Talar dome appears to be intact Soft tissues: Mild soft tissue edema is seen surrounding the ankle. IMPRESSION: Minimally displaced oblique fracture of the distal fibular metaphysis. Approved by: Jovon Lozano M.D. on 08/06/2023 at 18:05
== END ==
PROVIDERS: PCP Nurse Practitioner Family; Referring Provider Physician Assistant; Visit Provider Physician Assistant
DX: S82.434A Nondisplaced oblique fracture of shaft of right fibula, initial encounter for closed fracture (principal); M25.571 Pain in right ankle and joints of right foot; X58.XXXA Exposure to other specified factors, initial encounter
CPT/HCPCS: 73610

== ENCOUNTER → 2023-09-21 12:11 | Outpatient (CLI) | payer MEDICARE, SELFPAY ==
[2021-05-17 22:36] VITALS: BMI 27.3
--- NOTE | 2023-09-21 12:14 | DI.RAD.S_ITS ---
PROCEDURE: XR SHOULDER RT MIN 2V INDICATIONS: pain in right shoulder TECHNIQUE: 3 views of the shoulder were acquired. COMPARISON: [facility], CR, XR CHEST 1V, 05/17/2021, 18:18. FINDINGS: Bones: No fractures or dislocations. Mild degenerative changes at the right AC joint. No suspicious bony lesions. Visualized ribs appear intact. Soft tissues: No suspicious soft tissue calcifications. IMPRESSION: Mild degenerative changes at the right AC joint seen. If clinically indicated consider MRI for further evaluation. Dictated by: Arturo Ansari M.D. on 09/21/2023 at 15:40 Approved by: Arturo Ansari M.D. on 09/21/2023 at 15:42
--- NOTE | 2023-09-21 12:14 | DI.RAD.S_ITS ---
PROCEDURE: XR HIP W PEL IF DONE RT 2V INDICATIONS: pain in right hip TECHNIQUE: AP pelvis with lateral view(s) of the right hip(s). COMPARISON: None. FINDINGS: Bones: Moderate right hip DJD. [id number] left hip DJD. No fractures or dislocations. Pelvic ring appears intact. No suspicious bony lesions. Soft tissues: The visualized bowel gas pattern is normal. No suspicious soft tissue calcifications. IMPRESSION: Moderate right hip DJD. Dictated by: Arturo Ansari M.D. on 09/21/2023 at 15:39 Approved by: Arturo Ansari M.D. on 09/21/2023 at 15:40
== END ==
PROVIDERS: PCP Nurse Practitioner Family; Referring Provider Nurse Practitioner Family; Visit Provider Nurse Practitioner Family
DX: M16.0 Bilateral primary osteoarthritis of hip (principal); M25.551 Pain in right hip; M25.511 Pain in right shoulder
CPT/HCPCS: 73030; 73502